=== PATIENT | female | born 2005 | race Caucasian/White ===

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

== ENCOUNTER 2025-03-28 20:24 | Emergency (ER) | payer OTHER, SELFPAY ==
--- OUTSIDE RECORDS SUMMARY | 2025-03-28 20:26 | XMS_ITS | Encounter Summary ---
Author Organization [facility] Address [address] [place] [address] Care Team Providers Care Chair Caner Name Role Phone Elsewhere, Pcp Primary Care Provider Unavailabl e Reason for Visit * ReasonOnset DateCommentsMed Enmvlh0502/13/2025 Encounter Details DateTypeDepartmentCare Team (Latest Contact Info)Upheesvmgaz72/08/2025Refill Department of Allergy in [place], [place] [address] [place] [phone] Kenney Velazco M.D. [address] [place] [address] Med Refill Social History Tobacco UseTypesPacks/DayYears UsedDateSmoking Tobacco: NeverSmokeless Tobacco: NeverAHC UtilitiesAnswerDate RecordedIn the past 12 months has the electric, gas, oil, or water company threatened to shut off services in your home?No 11/25/2023Hunger Vital SignAnswerDate RecordedWithin the past 12 months, you worried that your food would run out before you got the money to buymore.Never true11/25/2023Within the past 12 months, the food you bought just didn't last and you didn't have money to get more.Never true11/25/2023RAPARE - TransportationAnswerDate RecordedIn the past 12 months, has lack of transportation kept you from medical appointments or from getting medications?No 11/25/2023In the past 12 months, has lack of transportation kept you from meetings, work, or from getting things needed for daily living?No11/25/2023 Safety and EnvironmentAnswerDate RecordedAre there any guns kept in or around your home?Yes12/31/2021Gun StorageNot on file12/31/2021hild EducationAnswerDate RecordedEarly Childhood EducationNot on file2Are you/your child doing well enough in school?Yes12/31/2021o you/your child have what you need to learn? (i.e. school supplies, access to internet, laptop athome, IEP)Yes 2Read to ChildNot on file12/31/2021dolescent EducationAnswerDate RecordedAre you/your child doing well enough in school?Yes12/31/2021o you/your child have what you need to learn? (i.e. school supplies, access to internet, laptop athome, IEP)Yes12/31/2021Housing StabilityAnswerDate RecordedWhat is your living situation today?I have a steady place to live11/25/2023Comments UnknownSex and Gender InformationValueDate RecordedSex Assigned at BirthFemale 11/25/2023 7:24 PM CDTLegal QxnMortrd97/14/2018 9:50 AM CDTGender IdentityFemale 11/25/2023 7:24 PM CDTSexual RlstgrjqtesZycbzujv62/20/2024 7:24 PM CDTdocumented as of this encounter Plan of Treatment Not on file documented as of this encounter Visit Diagnoses Diagnosis Gastroesophageal Reflux Disease Without Esophagitis documented in this encounter Care Teams Team MemberRelationshipSpecialtyStart DateEnd Date Elsewhere, Pcp PCP - GeneralInternal Medicine04/15/24documented as of this encounter
--- OUTSIDE RECORDS SUMMARY | 2025-03-28 20:26 | XMS_ITS | Clinical Summary ---
Author Organization [facility] er Address [address] [place] [address] Care Team Providers Care Bundler Seasonal Greenery Name Role Phone None, Pcp Primary Care Provider Unavailabl e Allergies No known active allergies Medications No known medications Immunizations ImmunizationAdministration DatesNext GcnEJtW5711/21/2010,01/28/2007DTaP / Hep B / IPV04/28/2006,02/26/2006,2005H1N1 All Forms03/29/2009H1N1 Inj02/23/2009HPV 9-Vqlghe2410/31/2017,10/10/2016Hep A, 2 Dose04/28/2007Hep A, 3 Dose11/21/2010Hib (PRP-OMP)01/28/2007,02/26/2006,2005INFLUENZA QUADRIVALENT MDV (IM) 01/16/2016IPV11/02/2018,01/28/2007Influenza 6mo-64yrs Quad Preservative Free IM 01/29/2023,01/24/2020,01/29/2019,01/30/2018,02/11/2017Influenza, Recombinant, Trivalent, PF, FLUBLOK (egg free)12/15/2024Influenza, Split Virus, Trivalent, Njnfstrbicjk32/01/2008,01/28/2007,05/28/2006,04/28/2006Influenza, Trivalent, PF 02/16/2014,01/13/2013,12/31/2011,01/25/2011,01/30/2010Influenza, Unspecified 01/20/2015,01/04/2009MMR11/21/2010MMRV10/30/2006Meningococcal ACYW Conjugate (MenQuadfi)08/21/2023Meningococcal B, Omv4Pneumococcal Conjugate 10/30/2006,04/28/2006,02/26/2006,2005Tdap10/10/20169683Cmeblgdop13/17/2011 Social History Tobacco UseTypesPacks/DayYears UsedDateSmoking Tobacco: NeverSmokeless Tobacco: Never Tobacco Cessation:Counseling Given: Not Answered CommentsNoSex and Gender InformationValueDate RecordedSex Assigned at BirthNot on fileLegal GmeTtctuo71/17/2025 9:46 AM CDTGender IdentityNot on file Sexual OrientationNot on file Last Filed Vital Signs Vital SignReadingTime TakenCommentsBlood Baxcomii971/9712/22/2024 10:30 AM CDT Nbbyn2156/17/2025 10:30 AM JLVVjrtsjuwxny59.3 ??C (97.3 ??F)12/22/2024 10:06 AM CDTRespiratory Ztmb704712/22/2024 10:06 AM CDTOxygen Zonnidnqbr28%12/22/2024 10:06 AM CDTInhaled Oxygen Concentration--Weight--Height--Body Mass Index-- Plan of Treatment Health MaintenanceDue DateLast DoneCommentsChlamydia Bkhgbvjjo85/22/2022COVID-19 Vaccine ( - season)/12/2020, 1DTaP,Tdap,and Td Vaccines (7 - Td or Tdap), 11/21/2010, 01/28/2007, Additional history existsPneumococcal Vaccine: Pediatrics (0 to 5 Years) and At- Risk Patients (6 to 49 Years)Aged Out10/30/2006, 04/28/2006, 02/26/2006, Additional history existsNo longer eligible based on patient's age to complete this topicHPV StavghafKitxotcwo78/27/2018, 10/10/2016Influenza VaccineCompleted 12/15/2024, 01/29/2023, 01/24/2020, Additional history exists Insurance * Guarantor: Faustina SchmitzAccount TypeRelation to PatientDate of BirthPhone Billing AddressPersonal/MiyienEbpb49/22/[address] [place] [address] Care Teams Team MemberRelationshipSpecialtyStart DateEnd Date None, Pcp [address] [employer] [address] [employer] [facility] [facility] [place] [address] PCP - GeneralGeneral Practice12/22/24
--- OUTSIDE RECORDS SUMMARY | 2025-03-28 20:26 | XMS_ITS | Clinical Summary ---
Author Organization [facility] Address [address] [place] [address] Care Team Providers Care Principal Systems Engineer Name Role Phone Elsewhere, Pcp Primary Care Provider Unavailabl e Source Comments Patient records contain information from all sites at [facility]. For routine questions regarding patient records, call [phone] during business hours, M-F 8:00 AM - 5:00 PM Central Time. Record requests for emergency care only can be directed to [phone] at any time.[facility] Allergies Active AllergyReactionsCriticalityNoted DateCommentsCat DanderOther (see comments)08/27/2017 Unknown reaction Dog DanderOther (see comments)08/27/2017 Unknown reaction Pollen ExtractsOther (see comments)08/27/2017 Unknown reaction Medications MedicationSigDispense QuantityRefillsLast FilledStart DateEnd DateStatus cetirizine (ZyrTEC) 10 mg tablet Take 10 mg by mouth daily.Active fluticasone furoate (FLONASE SENSIMIST NASAL) Administer 2 sprays into nostril(s) daily.Active venlafaxine (Effexor) 150 mg 24 hr tablet Take 150 mg by mouth daily with morning meal.Active albuterol 90 mcg/actuation inhaler Indications:Asthma Moderate Persistent (HCC)Inhale 2 puffs every 4 (four) hours as needed (for cough, wheeze, chest tightness, shortness of breath). 36 g ctive fluticasone propion-salmeteroL (Advair HFA) 230-21 mcg/actuation inhaler Indications:Asthma Moderate Persistent (HCC)Inhale 2 puffs 2 (two) times a day. Rinse mouth with water after use to reduce aftertaste and incidence of candidiasis. Do not swallow. 36 g 308/21/2024Active omeprazole (PriLOSEC) [address] capsule Indications:Gastroesophageal Reflux Disease Without EsophagitisTake 1 capsule (20 mg total) by mouth daily. 90 capsule 4Active Dupixent Syringe 300 mg/2 mL injection Indications:Dermatitis AtopicINJECT 300 MG (2 ML) UNDER THE SKIN EVERY 14 DAYS 12 mL 5Active montelukast (Singulair) 10 mg tablet Indications:Asthma Moderate Persistent (HCC)TAKE 1 TABLET AT BEDTIME 30 tablet 5Active Active Problems ProblemNoted DateDiagnosed DateCOVID-19 Rbcaxigqy02/09/2025Asthma Moderate Srgekcmiwn70/18/2019Alopecia Aothfhguyqv86/30/2018Rhinitis Allergic Dust Mite 09/03/2017Rhinitis Allergic Aukxuh2809/03/2017Rhinitis Allergic Due To Outdoor Mfrvwm4909/03/2017Dermatitis Otbqef2209/03/2017Gastroesophageal Reflux Disease NOS 2005 Overview (09/03/2017): Overview: LW Onset: 04Nis39 ; Gastroesophageal Reflux Disease Resolved Problems ProblemNoted DateDiagnosed DateResolved DateAsthma Mild Nrahysdckrxy93/30/2018 09/22/2018 Encounters DateTypeDepartmentCare IqvoWlnbtuzgohp46/08/2025[facility] in [address] [address] Kenney Velazco M.D. Med Aintil7902/06/[address]25[facility] in [address] [address] Kenney Velazco M.D. Med Rpfoho5601/30/[address] in [address] [address] Kenney Velazco M.D. Med Refillfrom Last 3 Months Immunizations ImmunizationAdministration DatesNext DueInfluenza, Gzdhrupskmc31/11/2016, 01/20/2015 Family History Medical HistoryRelationNameCommentsAngioedemaBrotherAvenChronic hivesBrotherAven AllergiesMaternal GrandmotherAsthmaMaternal GrandmotherSarcoidosisMaternal GrandmotherAllergiesMotherLauraSneezing around cats.RelationNameStatusComments BrotherAvenAliveFatherChadAliveMaternal GrandmotherMotherLauraAlive Social History Tobacco UseTypesPacks/DayYears UsedDateSmoking Tobacco: NeverSmokeless [...] on file12/31/2021hild EducationAnswerDate RecordedEarly Childhood EducationNot on file12/31/2021re you/your child doing well enough in school?Yes12/31/2021o you/your child have what you need to learn? (i.e. school supplies, access to internet, laptop athome, IEP)Yes 12/31/2021ead to ChildNot on file12/31/2021dolescent EducationAnswerDate RecordedAre you/your child doing well enough in school?Yes12/31/2021o you/your child have what you need to learn? (i.e. school supplies, access to internet, laptop athome, IEP)Yes12/31/2021Housing StabilityAnswerDate RecordedWhat is your living situation today?I have a steady place to live08/20/2024Comments UnknownSex and Gender InformationValueDate RecordedSex Assigned at BirthFemale 11/25/2023 7:24 PM CDTLegal ChoOdpjzl79/14/2018 9:50 AM CDTGender IdentityFemale 11/25/2023 7:24 PM CDTSexual OhvuoewviloKiljbtaa56/20/2024 7:24 PM CDT Last Filed Vital Signs Vital SignReadingTime TakenCommentsBlood Oajnmsva902/9704/15/2024 2:51 PM TEST PULLER Xzxsd23546/09/2025 2:51 PM JEALyynpwfddfx07.3 ??C (97.3 ??F)04/15/2024 2:51 PM CSTRespiratory Fegq284104/15/2024 2:51 PM CSTOxygen Mdqrjormib86%04/15/2024 2:51 PM CSTInhaled Oxygen Concentration--Ialtds433 kg (257 lb 11.2 oz)04/15/2024 2:47 PM MBTYadoxh508.6 cm (5' 6)04/15/2024 2:47 PM CSTBody Mass Index41.59004/15/2024 2:47 PM CSTBody Mass Index Mzwhdwluap83.33%04/15/2024 2:47 PM CSTGrowth Chart: CDC (Girls, 2-20 Years) Plan of Treatment Health MaintenanceDue DateLast DoneCommentsAnemia/Iron Deficiency Screening During Well Child Visit (if High Risk Menstruating Female)2005Chlamydia and Gonorrhea Alytaltbl09/22/2006HIV Tctfgzsyk61/22/2006Hearing Screening during Well Child Visit2005Hepatitis C Dtvyfybwb97/22/2006TB Screening during Well Child Visit week Well Child Check-Up month Well Child Check-Up month Well Child Check-Up month Well Child Check-Up month Well Child Check-Up month Well Child Check-Up month Well Child Check-Up year Well Child Check-Up month Well Child Check-Up year Well Child Check-Up09/26/2008Well Child Check-Up Completed in Past Year year Well Child Check-Up year Well Child Check-Up year Well Child Check-Up year Well Child Check-Up year Well Child Check-Up year Well Child Check-Up year Well Child Check-Up09/26/2018Asthma Action Plan year Well Child Check-Up09/27/2019Vision Screening during Well Child Visit year Well Child Check-Up year Well Child Check-Up year Well Child Check-Up09/27/2023sthma Control Test Qoffqlhmfxxpp27/02/202408/ Depression Screening (Annual PHQ-2) year Well Child Check-Up 09/26/2024Well Child Check-Up (WCC)09/26/2024Pneumococcal vaccine (0-49 years) (1 of 2 - PCV), 04/28/2006, 02/26/2006, Additional history existsAsthma Management/Exacerbation Questionnaire (AMQ/AEQ)/ COVID-19 Vaccine (3 - season)/12/2020, 08/23/2020Influenza Vaccine (#1)/, 01/24/2020, 01/29/2019, Additional history existsDTaP,Tdap,and Td Vaccines (7 - Td or Tdap)/09/2016, 11/21/2010, 01/28/2007, Additional history existsHepatitis B VaccinesCompleted 04/28/2006, 02/26/2006, 2005MMR PxbftyekYgdbaqorz39/17/2011, 10/30/2006 Varicella RdkmncijTjlbqcgcw24/17/2011, 10/30/2006HPV VaccinesCompleted 10/31/2017, 10/10/2016IPV ItlbtzvkFnladpync60/29/2019, 01/28/2007, 04/28/2006, Additional history existsMeningococcal RhoqhsfEsduywlzc82/16/2024, 10/31/2017 Insurance * Guarantor: Faustina Malik TypeRelation to PatientDate of PhoneBilling AddressPersonal/HjodcgFssw08/22/[address] [place] [address] * Guarantor: Fortino MALIK TypeRelation to PatientDate of BirthPhone Billing AddressPersonal/AdceezQugdwa21/17/[address] [place] [address] Care Teams Team MemberRelationshipSpecialtyStart DateEnd Date Elsewhere, Pcp PCP - GeneralInternal Medicine04/15/24
--- OUTSIDE RECORDS SUMMARY | 2025-03-28 20:26 | XMS_ITS | Encounter Summary ---
Author Organization [facility] Address [address] [place] [address] Care Team Providers Care Dye Range Feeder Name Role Phone Elsewhere, Pcp Primary Care Provider Unavailabl e Reason for Visit * ReasonCommentsMed Refill Encounter Details DateTypeDepartmentCare Team (Latest Contact Info)Evaopuycgnq87/02/2025Refill Department of Allergy in [place], [place] [address] [place] [address] Kenney Velazco M.D. [address] [place] [address] Med Refill Social History Tobacco [...] in or around your home?Yes12/31/2021Gun StorageNot on file09/26/2022Child EducationAnswerDate RecordedEarly Childhood EducationNot on file12/31/2021re you/your [...] Assigned at BirthFemale 11/25/2023 7:24 PM CDTLegal IuiDwxvts22/14/2018 9:50 AM CDTGender IdentityFemale 11/25/2023 7:24 PM CDTSexual DmmhuuwzhbvUfobobcq51/20/2024 7:24 PM CDTdocumented as of this encounter Miscellaneous Notes * Telephone Encounter - Ayla Camacho, L.P.N. - 02/07/2025 10:36 AM COLD TYPE ARTIST MILAN with Dr Velazco 11/26/23. Dx of GERD. Was seeing Dr Velazco for Asthma, allergic rhinitis and dermatitis. Is on Dupixent. PCP Elsewhere. Patient cancelled consult with Dr Conroy. No allergy orders for follow up. Please review and sign if appropriate. Did pend for 90 days with no refills with note will need follow up. Patient lives in [place]. TYPE ARTIST documented in this encounter Plan of Treatment Not on file documented as of this encounter Visit Diagnoses Diagnosis Gastroesophageal Reflux Disease Without Esophagitis- Primary documented in this encounter Care Teams Team MemberRelationshipSpecialtyStart DateEnd Date Elsewhere, Pcp PCP - GeneralInternal Medicine04/15/24documented as of this encounter
[2025-03-28 20:35] VITALS: BP 132/83; PULSE 105; RESP 18; TEMP 36.6; O2SAT 96; BMI 41.4
--- NOTE | 2025-03-29 01:57 | ED.GENADULT ---
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 No specific trauma or injury. Has been using allergy eyedrops with no significant improvement in symptoms. Has irritation of the skin underlying the right eye also, does sometimes use steroid ointment for this but is not currently using. No ulcerations in the mouth or nose reported. No fever. No foreign body sensation. Mild irritation of the eyes is common for her with the dog allergy as she does still live with the dog. But the drainage and redness are not normal for her. Past medical history reviewed, medications listed as accurate per patient. No known drug allergies. ROS is notable for the HEENT symptoms. Denies other skin, HEENT or generalized changes. Related Data Home Medications ?Medication ?Instructions ?Recorded ?Confirmed dupilumab 200 mg/1.14 mL 200 mg subcut Q2W 01/02/22 03/28/25 subcutaneous pen injector (Dupixent) fluticasone 100 mcg-salmeterol 50 1 inh inhalation BID 01/02/22 03/28/25 mcg/dose blistr powdr for inhalation (Advair Diskus) fluticasone propionate 50 1 spray intranasal QDAY 01/02/22 03/28/25 mcg/actuation nasal spray,suspension (Flonase Allergy Relief) albuterol sulfate 90 mcg/actuation 2 puff inhalation Q4H PRN 12/26/22 03/28/25 aerosol inhaler cetirizine 10 mg capsule (All Day 10 mg PO QDAY PRN 12/26/22 03/28/25 Allergy (cetirizine)) montelukast 10 mg tablet 10 mg PO QDAY 12/26/22 03/28/25 Previous Rx's ?Medication ?Instructions ?Recorded hydroxyzine HCl 25 mg tablet 25 mg PO TID PRN anxiety #30 tabs 12/19/22 venlafaxine 150 mg 150 mg PO QDAY #90 caps 04/28/24 capsule,extended release 24 hr venlafaxine 150 mg 150 mg PO DAILY #90 caps 08/06/24 capsule,extended release 24 hr drospirenone 3 mg-ethinyl 1 tab PO QDAY #84 tabs 01/31/25 estradiol 0.02 mg tablet (LAVON (28)) omeprazole 20 mg capsule,delayed 20 mg PO QDAY #60 caps 02/18/25 release Allergies Allergy/AdvReac Type Severity Reaction Status Date / Time No Known Drug Allergies Allergy Verified 08/21/23 15:46 PFSH PFS Medical History Passive suicidal ideations ?R45.851 - Suicidal ideations (ICD-10) Panic attacks ?F41.0 - Panic disorder [episodic paroxysmal anxiety] (ICD-10) Depression ?F32.A - Depression, unspecified (ICD-10) Overweight ?E66.3 - Overweight (ICD-10) Irregular periods ?N92.6 - Irregular menstruation, unspecified (ICD-10) Environmental allergies (02/12/12) ?Z91.09 - Other allergy status, other than to drugs and biological substances (ICD-10) Eczema ?L30.9 - Dermatitis, unspecified (ICD-10) Alopecia (07/09/10) ?L65.9 - Nonscarring hair loss, unspecified (ICD-10) Allergy to cats ?J30.81 - Allergic rhinitis due to animal (cat) (dog) hair and dander (ICD-10) Asthma due to seasonal allergies (02/12/12) ?J45.909 - Unspecified asthma, uncomplicated (ICD-10) Cat allergies ?J30.81 - Allergic rhinitis due to animal (cat) (dog) hair and dander (ICD-10) GERD (gastroesophageal reflux disease) ?K21.9 - Gastro-esophageal reflux disease without esophagitis (ICD-10) Asthma ?J45.909 - Unspecified asthma, uncomplicated (ICD-10) Surgical History H/O wisdom tooth extraction ?K08.409 - Partial loss of teeth, unspecified cause, unspecified class (ICD-10) Social History What is your current living situation?: I presently have a place to live Problems where you live: no known problems In the past 12 months, utilities in danger of being shut off: no In past 12 months, lack of transportation kept you from medical appts, meetings, work, or getting things needed for daily living: no In the past 12 mos, have been you worried that your food would run out before you had money to buy more?: never true In the past 12 mos, the food you bought just didn't last and you didn't have money to buy more?: never true Smoking Status: Never smoker Second hand tobacco smoke exposure: No How often do you have a drink containing alcohol: never How often do you have six or more drinks on one occasion: Never AUDIT-C Alcohol total score: 0 Non-prescribed substance use: denies use How often does anyone, including family, friends and others, physically hurt you: never How often does anyone, including family, friends and others, insult or talk down to you: never How often does anyone, including family, friends and others, threaten you with harm: never How often does anyone, including family, friends and others, scream or curse at you: never service: No Exam Const: Vital Signs, click to edit/add: Vital Signs - 24 hr 03/28/25 20:35 Temperature 97.9 F Pulse Rate [Pulse Oximeter] 105 H Respiratory Rate 18 Blood Pressure [Ri ght Upper Arm] 132/83 Pulse Oximetry 96 Oxygen Delivery Me thod Room Air Documenting provider has reviewed patient's vital signs: yes Common normals: no apparent distress General appearance: cooperative and well kempt Other: Very friendly and cooperative. We were extremely busy in the ED and she really was a bright spot in my day. HENMT: Common normals: normocephalic, TM's normal bilaterally, nasal mucous membranes and turbinates normal, moist oral mucous membranes and oropharynx normal Head and scalp: normocephalic Nose: nasal mucous membranes and turbinates normal Tympanic membrane: TM's normal bilaterally Eye: Other: Conjunctiva in right eye red, inflamed and swollen with purulent discharge from medial canthus. The cornea, iris do appear grossly normal with no obvious foreign body. Sclerae are not injected. Opposite left side has mildly inflamed conjunctiva but no purulent drainage. The skin underneath the right eye has some irritation and scaling. There is no redness or purulent drainage. Slight crusting to it but not particularly honey-colored. Skin underneath left eye normal. Neck & C-Spine: Common normals: full ROM and no lymphadenopathy Resp: Common normals: normal respiratory effort Effort & inspection: able to speak in complete sentences Psych: Common normals: speech normal Appearance: well kempt Attitude: engaged Activity/motor behavior: appropriate eye contact Speech: normal speech Insight: insight good Judgement: judgment good Skin: Common normals: no rashes or lesions noted General skin exam: no rashes or lesions noted Course Course ED Course: 89-year-old female with redness, swelling and purulent discharge from right eye. Underlying chronic inflammation from allergies notable in the opposite eye also but the right eye certainly does seem to have signs of secondary bacterial infection. Counseled patient on this. Recommend erythromycin ointment, dispensed here from the ED due to upcoming holiday and overnight availability. Also discussed bacitracin to the skin underneath the eye as I am concerned about potential secondary staph infection there as well. There does not seem to be any signs of cellulitis, but infection could worsen. Does not need oral antibiotics so at this time. She will apply the erythromycin 3-4 times daily while awake in the bacitracin the same amount of time to the topical skin. If she gets any ulcerations on the nose, use the bacitracin there also. Symptoms really should be markedly better in 3 days. If not noticing improvement in 5 days, recommend follow-up at [facility]. Alarm symptoms reviewed that would warrant ED re-evaluation. She verbalizes understanding and agreement. Vital Signs Vital signs: Initial Vital Signs Temperature 97.9 F 03/28/25 20:35 Temperature Source Temporal Artery Scan 03/28/25 20:35 Pulse Rate 105 H 03/28/25 20:35 Respiratory Rate 18 03/28/25 20:35 Blood Pressure 132/83 03/28/25 20:35 Blood Pressure Mean 99 03/28/25 20:35 Blood Pressure Position Sitting 03/28/25 20:35 Pulse Oximetry 96 03/28/25 20:35 Oxygen Delivery Method Room Air 03/28/25 20:35 Vital Signs Temperature 97.9 F 03/28/25 20:35 Pulse Rate 105 H 03/28/25 20:35 Respiratory Rate 18 03/28/25 20:35 Blood Pressure 132/83 03/28/25 20:35 Pulse Oximetry 96 03/28/25 20:35 Oxygen Delivery Method Room Air 03/28/25 20:35 Temperature 97.9 F 03/28/25 20:35 Pulse Rate 105 H 03/28/25 20:35 Respiratory Rate 18 03/28/25 20:35 Blood Pressure 132/83 03/28/25 20:35 Pulse Oximetry 96 03/28/25 20:35 Oxygen Delivery Method Room Air 03/28/25 20:35 Discharge Plan Discharge Clinical Impression: Bacterial conjunctivitis, Skin infection Patient Disposition: Home w/ Parent or Adult Condition: Stable Instructions: Conjunctivitis (ED) Additional Instructions: As we discussed, there was chronic inflammation of the lining of your lids called conjunctivitis. You are right, this is likely from underlying allergies. But unfortunately, there are signs of secondary bacterial infection. This is usually from skin bacteria that invade the inflamed areas and can make treatment more difficult. I have started you on an antibiotic ointment, erythromycin. Apply this 3 times daily to the right eye for 5 days. I do not see any obvious signs of a foreign body and any scratch will close within a couple more days and the antibiotic ointment will prevent complications. If your symptoms have not improved in a week, please make a follow-up appointment at [facility] on the [facility]. They have a more sophisticated way of looking at the entire eye ball and cornea to look for other problems. Do think that there is also secondary infection of the skin underneath the eye. I would recommend that you apply bacitracin ointment 3 times daily to this area also. I have given you a small packet here in the emergency room but you can rock picker another tube at the grocery store, [employer] or any pharmacy. Do not drive if your vision is impaired. It is okay to use Tylenol and/or ibuprofen for mild discomfort. Activity Level: Activity as Tolerated Discharge Diet: Regular Prescriptions: No Action fluticasone propion-salmeterol [Advair Diskus] 100-50 mcg/dose blister with device 1 inh inhalation BID Dupixent Pen 200 mg/1.14 mL pen injector 200 mg subcut Q2W fluticasone propionate [Flonase Allergy Relief] 50 mcg/actuation spray,suspension 1 spray intranasal QDAY Rx Instructions: administer into each nostril hydroxyzine HCl 25 mg tablet 25 mg PO TID PRN (Reason: anxiety) Qty: 30 0RF albuterol sulfate 90 mcg/actuation HFA aerosol inhaler 2 puff inhalation Q4H PRN All Day Allergy (cetirizine) 10 mg capsule 10 mg PO QDAY PRN montelukast 10 mg tablet 10 mg PO QDAY venlafaxine 150 mg capsule,extended release 24hr 150 mg PO QDAY Qty: 90 0RF venlafaxine 150 mg capsule,extended release 24hr 150 mg PO DAILY Qty: 90 3RF drospirenone-ethinyl estradiol [LAVON (28)] 3-0.02 mg tablet 1 tab PO QDAY Qty: 84 0RF omeprazole 20 mg capsule,delayed release(DR/EC) 20 mg PO QDAY Qty: 60 0RF Follow Up/Referrals: Luisa Lopez, [facility] [Primary Care Provider, Family Practice] Stand Alone Forms: [facility] Instructions
== END 2025-03-28 23:06 | disposition home or self-care (01) ==
PROVIDERS: Emergency Provider Family Medicine; PCP Nurse Practitioner Family
DX: H10.89 Other conjunctivitis (principal); L08.9 Local infection of the skin and subcutaneous tissue, unspecified
CPT/HCPCS: 99283